=== PATIENT | female | born 1970 | race Caucasian/White ===

== ENCOUNTER → 2020-11-28 | Outpatient (CLI) | payer OTHER ==
--- NOTE | 2020-11-29 08:21 | REP ---
INDICATION: N63.10 R BREAST MASS. COMPARISON: Comparison is made with mammography from [facility] dated August 21, 2020. TECHNIQUE: Routine views of the right breast are augmented by a true mL view. 3D tomography is carried out. Targeted sonography is performed the upper-outer quadrant of the right breast. This mammogram was interpreted with the aid of an FDA-approved computer-aided detection system. FINDINGS: Breast parenchyma is heterogeneously dense in a pattern which may inhibit the sensitivity mammography. There are dispersed punctate microcalcifications throughout dense breast parenchyma. These findings are unchanged from the comparison study. There is no mass or dominant density. No architectural distortion or suspicious grouping of calcifications. 3D tomography shows no additional abnormality. No mammographically suspicious finding. The Volpara volumetric breast density pattern is C. Targeted ultrasound: Upper outer quadrant sonography of the right breast is performed. Heterogeneous fibroglandular background echotexture is seen. In the 9 o'clock position, 6 cm from the nipple, there is a benign intramammary lymph node measuring 1.0 x 0.8 x 0.3 cm. This has a thin cortical margin and preserved fatty hilar architecture. There are 1 or 2 punctate shadowing calcifications visible sonographically corresponding with the mammographic findings. No suspicious sonographic abnormality. IMPRESSION: BIRADS/ACR category 2 benign right breast mammographic and sonographic findings. This patient's Tyrer-Cuzick lifetime breast cancer risk assessment score is 10.5%. RECOMMENDATION: Repeat screening mammography recommended 1 year (for women over 40). Clinical follow-up is advised. The patient letter being requested is M2 dense. <Electronically signed by Ten Hall > 11/29/20 0240
== END ==
LOC: M WHC 15:54
PROVIDERS: ATTEND Surgery
DX: N63.10 Unspecified lump in the right breast, unspecified quadrant (principal)

== ENCOUNTER 2021-01-15 12:55 | Outpatient (RCR) | payer OTHER ==
[2021-01-22] MEDS ORDERED: BLAC540C3 PO (13:46)
[2021-01-22] MEDS ORDERED: THEA200C PO (13:46)
[2021-01-22] MEDS ORDERED: SERT20CO4 PO (13:46)
[2021-01-22] MEDS ORDERED: [UNRECOGNIZED DRUG - OTHER] PO (13:46)
[2021-01-22] MEDS ORDERED: [UNRECOGNIZED DRUG - CODE] PO (13:46)
[2021-01-22] MEDS ORDERED: ZINC1TAB2 PO (13:46)
[2021-01-22] MEDS ORDERED: POTA50TAB PO (13:46)
== END 2021-02-02 ==
LOC: M PT 12:55
PROVIDERS: ATTEND Surgery
DX: M25.619 Stiffness of unspecified shoulder, not elsewhere classified (principal)

== ENCOUNTER → 2021-01-15 | Outpatient (CLI) | payer OTHER ==
--- NOTE | 2021-01-15 17:53 | REP ---
INDICATION: CENTRAL MEDIAL LOWER ASPECT BREAST RT ABN MRI. COMPARISON: MRI breasts [facility] 12/30/2020. TECHNIQUE: Real-time sonographic evaluation of right breast performed. Focused ultrasound performed of the right breast medially. FINDINGS: There is an irregular hypoechoic solid mass is visualized in the right breast in the region of 3 o'clock. This corresponds to the mass seen on the recent MRI. There is internal vascularity with Doppler evaluation. The mass measures approximately 8 x 10 x 6 mm. IMPRESSION: BIRADS/ACR category 4, suspicious. Irregular solid mass right breast 3 o'clock corresponds to the mass seen on the recent MRI. RECOMMENDATION: Recommend ultrasound-guided biopsy. <Electronically signed by Dmaeon Polk > 01/15/21 0058
== END ==
LOC: M RAD 14:23
PROVIDERS: ATTEND Surgery
DX: R92.8 Other abnormal and inconclusive findings on diagnostic imaging of breast (principal)

== ENCOUNTER → 2021-01-22 | Outpatient (CLI) | payer OTHER ==
[~2021-01-22] MED LIST: BLAC540C3 PO; POTA50TAB PO; SERT20CO4 PO; THEA200C PO; ZINC1TAB2 PO; [UNRECOGNIZED DRUG - CODE] PO; [UNRECOGNIZED DRUG - OTHER] PO
[2021-01-22 14:28] VITALS: BP 118/74
--- NOTE | 2021-01-27 19:10 | ROOPDOC ---
[facility] Report Of Operation Report of Operation DATE OF PROCEDURE: 01/22/21 DIAGNOSIS: right breast suspicious lesion PROCEDURE: ultrasound guided biopsy of the right breast suspicious lesion with clip placement SURGEON: Macarena Rey BLOOD LOSS: minimal COMPLICATIONS: none Lidocaine 1% LOT [id number] Expiration 08/2024 Sodium Bicarbonate 8.4% LOT [id number] Expiration 05/2021 Hydromark clip LOT [id number] Expiration 07/2023 SHAPE: 4 Bx device: BARD [id number] x10 cm LOT [id number] Expiration 09/2023 Informed consent was obtained. The most common risk and possible complications including bleeding, hematoma, bruising, infection, injury to surrounding structures were explained to the patient and the patient expressed understanding. Patient was placed on the bed in the supine position. Appropriate time out was done stating patients name, date of , and the procedure to be performed. The right breast was prepped and draped in the usual fashion. The ultrasound was used to confirm the location of the lesion in the right breast at 3:00 1-2 centimeters from the nipple. Plain Lidocaine 1% and 8.4% sodium bicarbonate 10:1 mix was used to anesthetize the skin, the biopsy site and tissues along the anticipated biopsy tract. Small skin incision was made with blade number 11. BARD Marquee 14G cannula with introducer ([id number]) was inserted through the incision and advanced under the ultrasound guidance to position immediately adjacent to the lesion. Next, the introducer was removed and BARD Marquee 14G biopsy device was places in the cannula. Pre-biopsy imaging, and post-biopsy imaging were captured. Five good core biopsies were taken at various levels of the lesion. Specimen was placed in formaldehyde, labeled with appropriate biopsy site and patients name, and sent to pathology for evaluation. Next, the biopsy device was withdrawn and a clip introducer was inserted into the biopsy site via the cannula. SHAPE 4 Hydromark clip was deployed under sonographic guidance. Post-clip placement image was captured. Manual pressure over the biopsy cavity and tract was held after the clip introducer was withdrawn. No bleeding was noted upon removal of the pressure. Post-biopsy mammogram of the right breast was obtained and showed clip in expected position. Postprocedural dressing was placed. Patient tolerated procedure well. Discharge instructions were discussed with the patient and the patient expressed understanding. MACARENA REY DO Jan 27, 2021 19:09
== END ==
LOC: M WHCPRO 13:03
PROVIDERS: ATTEND Surgery
DX: C50.911 Malignant neoplasm of unspecified site of right female breast (principal)
CPT/HCPCS: 19083; 77065; 88305; G0279

== ENCOUNTER → 2021-02-10 | Outpatient (CLI) | payer OTHER ==
--- NOTE | 2021-02-11 14:08 | REP ---
INDICATION: RIGHT BREAST CANCER. COMPARISON: None. TECHNIQUE: Following the injection of 8.8 mCi FDG-18 scans were obtained from the head through the mid thighs. FINDINGS: No focal abnormal area of uptake is identified in the breast, axilla, spine or elsewhere. IMPRESSION: Unremarkable examination with no evidence of metastatic disease identified. <Electronically signed by Nico Bean > 02/11/21 [id number]
== END ==
LOC: M PLARAD 12:50
PROVIDERS: ATTEND Surgery
DX: C50.911 Malignant neoplasm of unspecified site of right female breast (principal); R63.4 Abnormal weight loss
CPT/HCPCS: 78815; A9552

== ENCOUNTER 2021-02-25 06:39 | Inpatient (IN) | payer OTHER ==
[~2021-02-25] VITALS: Ht 162.6 cm; Wt 47.6 kg
[~2021-02-25 06:39] MED LIST changes: +CLINDAMYCIN 600 MG in IV 1 EA IV ONE; +HEPARIN SOD (PORCINE) 5000UNITS/ML 1ML VIAL/SYRINGE SQ ONE; +LIDOCAINE 1% MDV 20ML VIAL SQ PRN; +LR 1,000 ML IV ONE
[2021-02-25] MEDS ORDERED: LIDOCAINE 1% SDV 30ML VIAL As Ordered ONE (09:14)
[2021-02-25] MEDS ORDERED: BUPIVACAINE HCL 0.25% 30ML VIAL As Ordered ONE (09:14)
[2021-02-25] MEDS ORDERED: METHYLENE BLUE 0.5% (5MG/ML) 10 ML AMP (PROVAYBLUE) As Ordered ONE (09:15)
[2021-02-25] MEDS ORDERED: propofoL 200 MG/20 ML VIAL As Ordered ONE (09:17)
[2021-02-25] MEDS ORDERED: LIDOCAINE 2% 100MG/5ML SDV (FOR ANES.) As Ordered ONE (09:17)
[2021-02-25] MEDS ORDERED: fentaNYL 100 MCG/2 ML INJECTION As Ordered ONE (09:17)
[2021-02-25] MEDS ORDERED: MIDAZOLAM INJ 2MG/2ML VIAL (J2250 PER 1MG) As Ordered ONE (09:17)
[2021-02-25] MEDS ORDERED: ROCURONIUM BROMIDE 50 MG/5 ML VIAL As Ordered ONE (09:17)
[2021-02-25] MEDS ORDERED: SUCCINYLCHOLINE 100 MG/5 ML SYRINGE (J0330) As Ordered ONE (10:08)
[2021-02-25] MEDS ORDERED: PHENYLephrine 500MCG 5ML (100MCG/ML) SYRINGE As Ordered ONE (10:26)
[2021-02-25] MEDS ORDERED: ACETAMINOPHEN 1000MG 100ML IV BTL (OFIRMEV) (J0131 PER 10MG) As Ordered ONE (10:34)
[2021-02-25] MEDS ORDERED: ePHEDrine SULFATE 25 MG/5 ML(5MG/ML) SYRINGE As Ordered ONE ×2 (10:35→11:36)
[2021-02-25] MEDS ORDERED: METOCLOPRAMIDE INJ 10MG/2ML VIAL (J2765 PER 1) As Ordered ONE (10:49)
[2021-02-25] MEDS ORDERED: ONDANSETRON 4MG/2ML VIAL As Ordered ONE (10:49)
[2021-02-25] MEDS ORDERED: HYDROmorphone HCL 2MG/ML 1ML VIAL As Ordered ONE (10:55)
[2021-02-25] MEDS ORDERED: LR 1,000 ML IV SCH (13:10)
[2021-02-25] MEDS ORDERED: MORPHINE 2 MG/ML 1ML VIAL (J2270) IV PRN (13:10)
[2021-02-25] MEDS ORDERED: ONDANSETRON 4MG/2ML VIAL IV PRN (13:10)
[2021-02-25] MEDS: traMADol 50 MG TAB PO PRN ×2 (14:28→21:12)
[2021-02-25 14:45] VITALS: BP 125/75
[2021-02-25] MEDS ORDERED: MULTIVITAMINS/MINERALS THERAP 1 TAB PO ONE (15:00)
[2021-02-25 15:15] VITALS: BP 125/75
[2021-02-25] MEDS ORDERED: NITROGLYCERIN 0.4 MG SUBL TABLET SL STA (16:05)
[2021-02-25] MEDS ORDERED: GI COCKTAIL 50ML BTL(HYOSCYAMINE/MAALOX/LIDOCAINE VISCOUS)(1:3:1) PO ONE (16:05)
[2021-02-25] MEDS ORDERED: NITROGLYCERIN 0.4 MG SUBL TABLET SL PRN ×2 (16:05→16:45)
[2021-02-25] MEDS: CLINDAMYCIN 600 MG in IV 1 EA IV SCH ×2 (16:06→22:07)
[2021-02-25 16:15] VITALS: BP 123/74
[2021-02-25] MEDS ORDERED: PANTOPRAZOLE 40MG VIAL (C9113 PER 1) IV ONE (16:15)
[2021-02-25] MEDS ORDERED: CALCIUM CARBONATE 500 MG CHEW U/D PO PRN (16:45)
[2021-02-25 16:48] LABS: BASO % 0.1 % (0.0-1.0); HEMOGLOBIN 11.9 g/dl (12.0-15.5); LYMPH # 0.4 10^3/uL (1.5-5.0); LYMPH % 5.6 % (24.0-44.0); MEAN CORPUSCULAR HEMOGLOBIN 32.6 pg (27.0-33.0); MEAN CORPUSCULAR HGB CONC 33.1 g/dl (32.0-36.5); MEAN CORPUSCULAR VOLUME 98.6 fl (80.0-96.0); MONO # 0.2 10^3/uL (0.0-0.8); MONO % 3.1 % (2.0-8.0); NEUTROPHILS # 6.4 10^3/uL (1.5-8.5); NEUTROPHILS % 91.1 % (36.0-66.0); PLATELET COUNT, AUTOMATED 231 10^3/uL (150-450); RED BLOOD COUNT 3.65 10^6/uL (4.00-5.40)
[2021-02-25 17:06] LABS: ALBUMIN 3.8 GM/DL (3.2-5.2); ALT/SGPT 275 U/L (12-78); BILIRUBIN,TOTAL 0.7 MG/DL (0.2-1.0); BLOOD UREA NITROGEN 14 MG/DL (7-18); CALCIUM LEVEL 9.3 MG/DL (8.5-10.1); CARBON DIOXIDE LEVEL 27 MEQ/L (21-32); CHLORIDE LEVEL 104 MEQ/L (98-107); GLOMERULAR FILTRATION RATE > 60.0 (>51); GLUCOSE, FASTING 157 MG/DL (70-100); POTASSIUM SERUM 3.4 MEQ/L (3.5-5.1); SODIUM LEVEL 139 MEQ/L (136-145); TOTAL PROTEIN 6.7 GM/DL (6.4-8.2)
[2021-02-25 17:07] LABS: ERYTHROCYTE SEDIMENTATION RATE 6 mm/hr (0-30)
[2021-02-25 17:11] LABS: CPK CREATINE PHOSPHOKINASE 66 U/L (26-192)
[2021-02-25 17:12] LABS: CK-MB VALUE MASS < 1.0 NG/ML (<3.6)
[2021-02-25 17:15] VITALS: BP 129/76
[2021-02-25] MEDS: SUCRALFATE 1 GM TAB PO SCH ×2 (17:15→21:11)
[2021-02-25] MEDS: ACETAMINOPHEN TAB 650MG DOSE (2X325MG) PO PRN (17:24)
[2021-02-25 18:00] VITALS: BP 130/77
[2021-02-25] MEDS ORDERED: diphenhydrAMINE 50MG CAP PO ONE (20:30)
[2021-02-25] MEDS ORDERED: ISOVUE-370 76% 100ML VIAL As Ordered ONE (21:33)
[2021-02-25 22:00] VITALS: BP 94/57
[2021-02-26 02:00] VITALS: BP 104/58
[2021-02-26] MEDS: CLINDAMYCIN 600 MG in IV 1 EA IV SCH ×4 (03:05→21:47)
[2021-02-26] MEDS: LR 1,000 ML IV SCH ×3 (04:11→23:45)
[2021-02-26 06:00] VITALS: BP 97/56
[2021-02-26] MEDS: SUCRALFATE 1 GM TAB PO SCH ×4 (07:30→20:25)
[2021-02-26] MEDS: SENOKOT S TAB PO SCH ×2 (08:33→20:25)
[2021-02-26] MEDS: OMEPRAZOLE 20MG CAP PO SCH (08:33)
[2021-02-26] MEDS: MIRALAX *UNIT DOSE* 17GM PACKET PO SCH (08:33)
[2021-02-26] MEDS: SERTRALINE HCL 50 MG TAB PO SCH (09:00)
[2021-02-26 09:10] LABS: ALT/SGPT 161 U/L (12-78); BILIRUBIN,TOTAL 0.5 MG/DL (0.2-1.0); BLOOD UREA NITROGEN 13 MG/DL (7-18); CALCIUM LEVEL 8.8 MG/DL (8.5-10.1); CARBON DIOXIDE LEVEL 29 MEQ/L (21-32); CHLORIDE LEVEL 107 MEQ/L (98-107); CREATININE FOR GFR 0.62 MG/DL (0.55-1.30); GLOMERULAR FILTRATION RATE > 60.0 (>51); GLUCOSE, FASTING 82 MG/DL (70-100); LIPASE 1069 U/L (73-393); POTASSIUM SERUM 3.6 MEQ/L (3.5-5.1); SODIUM LEVEL 143 MEQ/L (136-145); TOTAL PROTEIN 5.3 GM/DL (6.4-8.2)
[2021-02-26 10:00] VITALS: BP 100/57
[2021-02-26] MEDS: traMADol 50 MG TAB PO PRN (10:24)
[2021-02-26] MEDS: MIDODRINE 5 MG TAB PO SCH ×2 (12:10→16:09)
[2021-02-26] MEDS ORDERED: POTA99TA14 PO (12:33)
[2021-02-26] MEDS ORDERED: VITMTA PO (12:33)
[2021-02-26] MEDS ORDERED: CALC1TAB63 PO (12:33)
[2021-02-26] MEDS ORDERED: SERT50TA29 PO (12:33)
[2021-02-26] MEDS ORDERED: HOME MED LIST COMPLETE! XX SCH (12:35)
[2021-02-26 14:00] VITALS: BP 105/57
[2021-02-26] MEDS ORDERED: PANTOPRAZOLE 40MG VIAL (C9113 PER 1) IV ONE (14:00)
[2021-02-26 15:35] LABS: HEPATITIS B SURFACE ANTIGEN NEGATIVE (NEGATIVE)
[2021-02-26 16:01] LABS: HEPATITIS C VIRUS ABY INDEX 0.1 INDEX (<0.8)
[2021-02-26 16:02] LABS: HEPATITIS B CORE ANTIBODY IGM NEGATIVE (NEGATIVE)
[2021-02-26] MEDS: ACETAMINOPHEN TAB 650MG DOSE (2X325MG) PO PRN ×2 (16:25→21:47)
[2021-02-26 18:00] VITALS: BP 112/56
[2021-02-26 22:00] VITALS: BP 121/59
[2021-02-27] VITALS (8 sets, daily range): BP systolic 88–162; BP diastolic 48–77
[2021-02-27] MEDS: CLINDAMYCIN 600 MG in IV 1 EA IV SCH (03:20)
[2021-02-27] MEDS: LR 1,000 ML IV SCH (03:20)
[2021-02-27] MEDS: SUCRALFATE 1 GM TAB PO SCH ×4 (07:30→22:21)
[2021-02-27] MEDS ORDERED: LIDOCAINE 2% 100MG/5ML SDV (FOR ANES.) As Ordered ONE (07:43)
[2021-02-27] MEDS ORDERED: MIDAZOLAM INJ 2MG/2ML VIAL (J2250 PER 1MG) As Ordered ONE (07:43)
[2021-02-27] MEDS ORDERED: propofoL 200 MG/20 ML VIAL As Ordered ONE (07:43)
[2021-02-27] MEDS ORDERED: fentaNYL 100 MCG/2 ML INJECTION As Ordered ONE (07:43)
[2021-02-27] MEDS ORDERED: NS 1,000 ML IV ONE (07:45)
[2021-02-27] MEDS ORDERED: MIDODRINE 5 MG TAB PO ONE (07:45)
[2021-02-27 08:12] LABS: BASO % 0.9 % (0.0-1.0); EOS # 0.4 10^3/uL (0.0-0.5); EOS % 8.8 % (0.0-3.0); HEMATOCRIT 35.8 % (36.0-47.0); HEMOGLOBIN 11.5 g/dl (12.0-15.5); LYMPH # 1.7 10^3/uL (1.5-5.0); LYMPH % 37.9 % (24.0-44.0); MEAN CORPUSCULAR HGB CONC 32.1 g/dl (32.0-36.5); MEAN CORPUSCULAR VOLUME 102.6 fl (80.0-96.0); MONO # 0.4 10^3/uL (0.0-0.8); MONO % 8.8 % (2.0-8.0); NEUTROPHILS % 43.4 % (36.0-66.0); PLATELET COUNT, AUTOMATED 212 10^3/uL (150-450); RED BLOOD COUNT 3.49 10^6/uL (4.00-5.40); WHITE BLOOD COUNT 4.5 10^3/uL (4.0-10.0)
[2021-02-27 08:53] LABS: ALT/SGPT 137 U/L (12-78); BILIRUBIN,TOTAL 0.5 MG/DL (0.2-1.0); BLOOD UREA NITROGEN 5 MG/DL (7-18); C REACTIVE PROTEIN QUANTITATIV 0.47 MG/DL (0.00-0.30); CALCIUM LEVEL 9.1 MG/DL (8.5-10.1); CARBON DIOXIDE LEVEL 31 MEQ/L (21-32); CHLORIDE LEVEL 109 MEQ/L (98-107); CREATININE FOR GFR 0.54 MG/DL (0.55-1.30); GLOMERULAR FILTRATION RATE > 60.0 (>51); GLUCOSE, FASTING 89 MG/DL (70-100); LIPASE 674 U/L (73-393); POTASSIUM SERUM 3.4 MEQ/L (3.5-5.1); SODIUM LEVEL 145 MEQ/L (136-145); TOTAL PROTEIN 6.1 GM/DL (6.4-8.2); TRIGLYCERIDES LEVEL 81 MG/DL (<150)
[2021-02-27 08:54] LABS: ERYTHROCYTE SEDIMENTATION RATE 8 mm/hr (0-30)
[2021-02-27] MEDS: SENOKOT S TAB PO SCH ×2 (09:00→22:21)
[2021-02-27] MEDS: MIRALAX *UNIT DOSE* 17GM PACKET PO SCH (09:00)
[2021-02-27] MEDS ORDERED: CIPROFLOXACIN 400 MG in IV 1 EA IV SCH (11:00)
[2021-02-27] MEDS: ACETAMINOPHEN TAB 650MG DOSE (2X325MG) PO PRN (11:52)
[2021-02-27] MEDS ORDERED: metroNIDAZOLE 500 MG in IV 1 EA IV SCH (12:00)
[2021-02-27] MEDS ORDERED: LR 1,000 ML IV SCH (12:25)
[2021-02-27] MEDS ORDERED: fentaNYL 100 MCG/2 ML INJECTION IV PRN (12:25)
[2021-02-27] MEDS ORDERED: ONDANSETRON 4MG/2ML VIAL IV PRN (12:25)
[2021-02-27] MEDS ORDERED: ACETAMINOPHEN TAB 650MG DOSE (2X325MG) PO ONE (12:25)
[2021-02-27] MEDS ORDERED: METOCLOPRAMIDE INJ 10MG/2ML VIAL (J2765 PER 1) IV PRN (12:25)
[2021-02-27] MEDS: MIDODRINE 5 MG TAB PO SCH ×2 (13:29→16:52)
[2021-02-27] MEDS: SERTRALINE HCL 50 MG TAB PO SCH (13:30)
[2021-02-27] MEDS: OMEPRAZOLE 20MG CAP PO SCH (13:30)
[2021-02-27] MEDS ORDERED: cefTRIAXone SOD 2 GM in D5W MINI-BAG PLUS 50 ML IV SCH (14:00)
[2021-02-27] MEDS ORDERED: PROHANCE 279.3MG/ML 15ML VIAL As Ordered ONE (20:58)
[2021-02-28 01:50] VITALS: BP 112/59
[2021-02-28 06:00] VITALS: BP 105/53
[2021-02-28] MEDS ORDERED: MIRA1POW3 PO (07:18)
[2021-02-28] MEDS ORDERED: OMEP-173 PO (07:18)
[2021-02-28] MEDS ORDERED: SUCR1TA PO (07:18)
[2021-02-28] MEDS ORDERED: SENN-52 PO (07:18)
[2021-02-28] MEDS: SERTRALINE HCL 50 MG TAB PO SCH (08:10)
[2021-02-28] MEDS: SUCRALFATE 1 GM TAB PO SCH ×4 (08:10→20:04)
[2021-02-28] MEDS: MIRALAX *UNIT DOSE* 17GM PACKET PO SCH (08:10)
[2021-02-28] MEDS: MIDODRINE 5 MG TAB PO SCH ×3 (08:10→15:58)
[2021-02-28] MEDS: OMEPRAZOLE 20MG CAP PO SCH (08:10)
[2021-02-28] MEDS: SENOKOT S TAB PO SCH ×2 (08:10→20:04)
[2021-02-28] MEDS: ACETAMINOPHEN TAB 650MG DOSE (2X325MG) PO PRN (08:16)
[2021-02-28 08:47] LABS: BASO % 0.7 % (0.0-1.0); EOS # 0.6 10^3/uL (0.0-0.5); EOS % 9.4 % (0.0-3.0); HEMATOCRIT 39.5 % (36.0-47.0); HEMOGLOBIN 12.8 g/dl (12.0-15.5); LYMPH # 2.1 10^3/uL (1.5-5.0); MEAN CORPUSCULAR HEMOGLOBIN 32.9 pg (27.0-33.0); MEAN CORPUSCULAR HGB CONC 32.4 g/dl (32.0-36.5); MEAN CORPUSCULAR VOLUME 101.5 fl (80.0-96.0); MONO # 0.5 10^3/uL (0.0-0.8); MONO % 7.5 % (2.0-8.0); NEUTROPHILS % 48.1 % (36.0-66.0); PLATELET COUNT, AUTOMATED 271 10^3/uL (150-450); RED BLOOD COUNT 3.89 10^6/uL (4.00-5.40); WHITE BLOOD COUNT 6.2 10^3/uL (4.0-10.0)
[2021-02-28 09:09] LABS: ALBUMIN 3.4 GM/DL (3.2-5.2); ALT/SGPT 151 U/L (12-78); AMYLASE 140 U/L (25-115); BILIRUBIN,TOTAL 0.6 MG/DL (0.2-1.0); BLOOD UREA NITROGEN 5 MG/DL (7-18); C REACTIVE PROTEIN QUANTITATIV 0.49 MG/DL (0.00-0.30); CARBON DIOXIDE LEVEL 29 MEQ/L (21-32); CHLORIDE LEVEL 107 MEQ/L (98-107); CREATININE FOR GFR 0.79 MG/DL (0.55-1.30); GLOMERULAR FILTRATION RATE > 60.0 (>51); GLUCOSE, FASTING 148 MG/DL (70-100); LIPASE 885 U/L (73-393); POTASSIUM SERUM 3.2 MEQ/L (3.5-5.1); SODIUM LEVEL 143 MEQ/L (136-145); TOTAL PROTEIN 6.5 GM/DL (6.4-8.2)
[2021-02-28 09:12] LABS: ERYTHROCYTE SEDIMENTATION RATE 9 mm/hr (0-30)
[2021-02-28] MEDS ORDERED: POTASSIUM CHLORIDE 10MEQ SR TABLET PO ONE (09:35)
[2021-02-28 11:27] LABS: BASO % 0.6 % (0.0-1.0); EOS # 0.4 10^3/uL (0.0-0.5); HEMOGLOBIN 12.4 g/dl (12.0-15.5); LYMPH # 1.5 10^3/uL (1.5-5.0); LYMPH % 28.2 % (24.0-44.0); MEAN CORPUSCULAR HEMOGLOBIN 33.4 pg (27.0-33.0); MEAN CORPUSCULAR HGB CONC 33.5 g/dl (32.0-36.5); MEAN CORPUSCULAR VOLUME 99.7 fl (80.0-96.0); MONO # 0.5 10^3/uL (0.0-0.8); MONO % 8.9 % (2.0-8.0); NEUTROPHILS # 2.9 10^3/uL (1.5-8.5); NEUTROPHILS % 55.1 % (36.0-66.0); PLATELET COUNT, AUTOMATED 233 10^3/uL (150-450); RED BLOOD COUNT 3.71 10^6/uL (4.00-5.40); WHITE BLOOD COUNT 5.3 10^3/uL (4.0-10.0)
[2021-02-28 11:37] LABS: INR 1.06; PROTHROMBIN TIME 14.2 SECONDS (12.7-14.5)
[2021-02-28 11:38] LABS: PARTIAL THROMBOPLASTIN TIME 32.2 SECONDS (25.9-37.0)
[2021-02-28 11:58] LABS: MONO REFLEX EBV VCA IgM NEGATIVE (NEGATIVE)
[2021-02-28 12:09] LABS: ACETAMINOPHEN LEVEL 6.8 UG/ML (10.0-30.0); COMPLEMENT C3 74 MG/DL (90-180); COMPLEMENT C4 17 MG/DL (10-40); FERRITIN 155 NG/ML (8-252); FREE THYROXINE INDEX 3.6 % (1.3-4.8); IRON (FE) 43 UG/DL (50-170); PERCENT SATURATION 15.6 % (13.2-45.0); T UPTAKE 35 % (30-39); THYROID STIMULATING HORMONE 0.309 uIU/ML (0.358-3.740); THYROXINE (T4) 10.3 UG/DL (4.5-12.0); TOTAL IRON BINDING CAPACITY 275 UG/DL (250-450)
[2021-02-28] MEDS ORDERED: MOM 30ML SUSPENSION UDC PO ONE (12:10)
[2021-02-28 15:13] VITALS: BP 118/67
[2021-02-28] MEDS ORDERED: POLYETHYLENE GLYCOL (MIRALAX) 238GM BOTTLE PO ONE (16:00)
[2021-02-28 18:00] VITALS: BP 120/72
[2021-02-28 20:49] VITALS: BP 113/65
[2021-03-01] VITALS (8 sets, daily range): BP systolic 104–113; BP diastolic 51–70
[2021-03-01] MEDS: KCL 40MEQ IN D5/0.45NS 1000ML 1,000 ML IV SCH ×2 (05:21→15:00)
[2021-03-01 07:05] LABS: ALBUMIN 3.1 GM/DL (3.2-5.2); ALT/SGPT 131 U/L (12-78); BILIRUBIN,TOTAL 0.5 MG/DL (0.2-1.0); BLOOD UREA NITROGEN 5 MG/DL (7-18); CALCIUM LEVEL 8.9 MG/DL (8.5-10.1); CARBON DIOXIDE LEVEL 26 MEQ/L (21-32); CHLORIDE LEVEL 111 MEQ/L (98-107); CREATININE FOR GFR 0.51 MG/DL (0.55-1.30); GLOMERULAR FILTRATION RATE > 60.0 (>51); GLUCOSE, FASTING 89 MG/DL (70-100); LIPASE 619 U/L (73-393); POTASSIUM SERUM 3.6 MEQ/L (3.5-5.1); SODIUM LEVEL 144 MEQ/L (136-145); TOTAL PROTEIN 5.9 GM/DL (6.4-8.2)
[2021-03-01] MEDS: SUCRALFATE 1 GM TAB PO SCH ×2 (07:30→13:14)
[2021-03-01] MEDS ORDERED: propofoL 200 MG/20 ML VIAL As Ordered ONE (07:32)
[2021-03-01] MEDS ORDERED: LIDOCAINE 2% 100MG/5ML SDV (FOR ANES.) As Ordered ONE (07:32)
[2021-03-01] MEDS: MIDODRINE 5 MG TAB PO SCH ×2 (08:00→13:14)
[2021-03-01] MEDS: MIRALAX *UNIT DOSE* 17GM PACKET PO SCH (09:00)
[2021-03-01] MEDS: SENOKOT S TAB PO SCH (09:00)
[2021-03-01] MEDS: OMEPRAZOLE 20MG CAP PO SCH (10:46)
[2021-03-01] MEDS: SERTRALINE HCL 50 MG TAB PO SCH (10:46)
[2021-03-01 19:08] LABS: ANTINUCLEAR ANTIBODIES DIRECT Negative (Negative)
[2021-03-04 14:17] LABS: Chitobioside Carbohydrat (ACCA 156 units (0-90); Laminaribioside Carbohyd (ALCA 90 units (0-60); Mannobioside Carbohydrat (AMCA 183 units (0-100); Saccharomyces cerevisiae IgG A 38 units (0-50)
[2021-03-05 06:08] LABS: IGASUB2 186.1 mg/dL (73.2-301.2); IGASUB3 48.4 mg/dL (13.4-97.9)
[2021-03-16 20:11] LABS: ANCA-ATYPICAL <1:20 titer (Neg:<1:20); ANTI CENTROMERE ANTIBODY <0.2 AI (0.0-0.9); ANTI-MITOCHONDRIAL ANTIBODY <20.0 Units (0.0-20.0); ANTI-SACCHAROMYCES CEREV. IgA <20.0 Units (0.0-24.9); ANTI-SACCHAROMYCES CEREV. IgG 29.7 Units (0.0-24.9); C1 ESTER INHIB. NON FUNCTIONAL 35 mg/dL (21-39); C1 ESTERASE INHIB. FUNCTIONAL > 91 (.); CERULOPLASMIN 20.3 mg/dL (19.0-39.0); COMPLEMENT TOTAL (CH50) > 60 U/mL (>41); CYTOPLASMIC NEUTROP AB ANCA-C <1:20 titer (Neg:<1:20); EBV VIRAL CAPSID AG IgM <36.0 U/mL (0.0-35.9); Lyme Disease IgG/IgM Antibodie <0.91 ISR (0.00-0.90); Lyme Disease IgM Ab Quantitati <0.80 index (0.00-0.79); PERINUCLEAR AB ANCA-P <1:20 titer (Neg:<1:20); PORPHYRIN TOTAL PLASMA <0.1 ug/dL (0.0-1.0); PORPHYRINS SERUM <0.1 ug/dL (0.0-1.0); TISSUE TRANSGLUTAMINASE IgA 3 U/mL (0-3); TISSUE TRANSGLUTAMINASE IgG <2 U/mL (0-5); TRANSFERRIN 209 mg/dL (192-364)
== END 2021-03-01 16:33 | disposition home or self-care (01) | DRG 581 ==
LOC: M SDC 06:39 → M MS5PR 06:40 → OBSVTOIN 02-27 22:03
PROVIDERS: ADMIT Surgery; ATTEND General Practice
PROC: 0HBT0ZZ Excision of Right Breast, Open Approach (ICD-10-PCS; 2021-02-25)
PROC: 07B50ZX Excision of Right Axillary Lymphatic, Open Approach, Diagnostic (ICD-10-PCS; principal; 2021-02-25 09:55)
PROC: 0DJ08ZZ Inspection of Upper Intestinal Tract, Via Natural or Artificial Opening Endoscopic (ICD-10-PCS; 2021-02-27)
PROC: 0DBE8ZX Excision of Large Intestine, Via Natural or Artificial Opening Endoscopic, Diagnostic (ICD-10-PCS; 2021-03-01)
DX: C50.911 Malignant neoplasm of unspecified site of right female breast (principal); R07.89 Other chest pain; R10.13 Epigastric pain; G43.909 Migraine, unspecified, not intractable, without status migrainosus; K90.0 Celiac disease; K58.2 Mixed irritable bowel syndrome; R74.01 Elevation of levels of liver transaminase levels; R42 Dizziness and giddiness; F41.9 Anxiety disorder, unspecified; I95.9 Hypotension, unspecified; K44.9 Diaphragmatic hernia without obstruction or gangrene; Z90.49 Acquired absence of other specified parts of digestive tract; Z98.84 Bariatric surgery status; Z80.0 Family history of malignant neoplasm of digestive organs; Z80.42 Family history of malignant neoplasm of prostate; Z80.8 Family history of malignant neoplasm of other organs or systems; Z88.0 Allergy status to penicillin; Z88.2 Allergy status to sulfonamides; Z88.6 Allergy status to analgesic agent; Z88.8 Allergy status to other drugs, medicaments and biological substances; R50.9 Fever, unspecified; Z91.040 Latex allergy status; Z17.0 Estrogen receptor positive status [ER+]; Z20.822 Contact with and (suspected) exposure to COVID-19

== ENCOUNTER → 2021-03-24 | Outpatient (CLI) | payer OTHER ==
[~2021-03-24] MED LIST changes: +CALC1TAB63 PO; -CLINDAMYCIN 600 MG in IV 1 EA IV ONE; -HEPARIN SOD (PORCINE) 5000UNITS/ML 1ML VIAL/SYRINGE SQ ONE; -LIDOCAINE 1% MDV 20ML VIAL SQ PRN; -LR 1,000 ML IV ONE; +MIRA1POW3 PO; +OMEP-173 PO; +POTA99TA14 PO; +SENN-52 PO; +SERT50TA29 PO; +SUCR1TA PO; +VITMTA PO
== END ==
LOC: M RAD 11:27
PROVIDERS: ATTEND Surgery
DX: M25.619 Stiffness of unspecified shoulder, not elsewhere classified (principal)

== ENCOUNTER → 2021-08-18 | Outpatient (REF) | payer OTHER, MEDICARE | LOC: M SFHCWAGY 19:03 | PROVIDERS: ATTEND Obstetrics & Gynecology | DX: Z01.419 Encounter for gynecological examination (general) (routine) without abnormal findings (principal) ==

== ENCOUNTER → 2022-08-21 | Outpatient (REF) | payer OTHER, MEDICARE | LOC: M PLALAB 11:01 | PROVIDERS: ATTEND Obstetrics & Gynecology | DX: Z01.419 Encounter for gynecological examination (general) (routine) without abnormal findings (principal) ==